=== PATIENT | male | born 1955 | race Caucasian/White ===

== ENCOUNTER 2021-06-05 06:00 | Outpatient (RCR) | payer OTHER, SELFPAY | END 2021-06-22 23:59 | disposition home or self-care (01) | LOC: SPT 06:00 | PROVIDERS: PCP Family Medicine; Referring Provider Family Medicine; Visit Provider Family Medicine | DX: M25.511 Pain in right shoulder (principal); G89.29 Other chronic pain | CPT/HCPCS: 97110; 97150; 97162 ==

== ENCOUNTER → 2021-07-28 08:47 | Outpatient (BNVA) | payer OTHER, SELFPAY | PROVIDERS: PCP Family Medicine; Visit Provider Family Medicine | DX: R35.1 Nocturia (principal); Z13.6 Encounter for screening for cardiovascular disorders | CPT/HCPCS: 80053; 80061; 84153; 85025 ==

== ENCOUNTER 2022-02-13 15:23 | Outpatient (CLI) | payer OTHER, SELFPAY ==
--- NOTE | 2022-02-13 15:55 | XR_ITS ---
WS: [id number] Exam: XR knee RT 3V* [id number] Date/Time of Exam: 02/13/2022 4:14 PM Reason For Exam: chronic right knee pain Comparison 07/09/2016. No acute fracture or dislocation. Moderate degenerative change of both the medial and lateral joint c ompartments. Degenerative change at the patellofemoral joint. No joint effusion seen. XR/XR knee RT 3V* [id number] IMPRESSION: 1. Moderate tricompartmental DJD. No acute fracture or joint effusion.
== END 2022-02-13 15:24 | disposition home or self-care (01) ==
PROVIDERS: PCP Family Medicine; Visit Provider Family Medicine
DX: M17.11 Unilateral primary osteoarthritis, right knee (principal); M25.561 Pain in right knee; G89.29 Other chronic pain
CPT/HCPCS: 73562

== ENCOUNTER → 2022-04-12 13:51 | Outpatient (BNVA) | payer OTHER, SELFPAY | PROVIDERS: PCP Family Medicine; Referring Provider Family Medicine; Visit Provider Specialist | DX: M17.11 Unilateral primary osteoarthritis, right knee (principal) | CPT/HCPCS: 73560; 73565 ==

== ENCOUNTER → 2023-02-04 13:50 | Outpatient (BNVA) | payer MEDICARE, OTHER, SELFPAY | PROVIDERS: PCP Family Medicine; Visit Provider Specialist | DX: M17.11 Unilateral primary osteoarthritis, right knee (principal); S83.207A Unspecified tear of unspecified meniscus, current injury, left knee, initial encounter; X58.XXXA Exposure to other specified factors, initial encounter | CPT/HCPCS: 20610; 73560; 73565; 99214; J7326 ==

== ENCOUNTER 2023-02-19 06:56 | Outpatient (CLI) | payer MEDICARE, OTHER, SELFPAY ==
--- NOTE | 2023-02-19 07:15 | MR_ITS ---
WS: [id number] MRI LEFT KNEE NONCONTRAST TECHNIQUE: Axial PD, coronal PD fat sat, coronal PD, sagittal PD, and sagittal PD fat-sat images obta ined. CLINICAL INFORMATION: possible meniscus tear COMPARISON: None. FINDINGS: Advanced joint compartment arthritis. Hypertrophic changes along the joint line. Hypertrophic patella . Small suprapatellar effusion. Distal quadriceps and patella tendons are intact. ACL and PCL appear intact. Blunting of the posterior horn medial meniscus with small tear at the meniscal root. Blunting of the posterior horn. Lateral meniscus is intact. Moderate to advanced chondromalacia patella. Medial and lateral patellar retinacula appear intact. Ti ny popliteal cyst. Small amount of fluid and edema deep to the MCL which appears intact. Lateral augusta ateral ligament appears intact. Mild peripheral extrusion of the medial meniscus. Full-thickness cart ilage defects involving the medial joint compartment. MR/MR knee LT wo con* [id number] IMPRESSION: 1. Advanced tricompartmental arthritis with hypertrophic changes along the elsy nt line. Small suprapatellar effusion. 2. Small tear involving the posterior horn medial meniscus extending to the me niscal root. 3. ACL and PCL appear intact. 4. Moderate to advanced chondromalacia patella. 5. Full-thickness cartilage defects involving the medial greater than lateral joint compartment. 6. Grade one injury MCL which appears intact. Outbridge grading: grade III: partial-thickness cartilage loss with focal ulcer ation
== END 2023-02-19 06:57 ==
PROVIDERS: PCP Family Medicine; Visit Provider Specialist
DX: S83.207A Unspecified tear of unspecified meniscus, current injury, left knee, initial encounter (principal); M17.11 Unilateral primary osteoarthritis, right knee; X58.XXXA Exposure to other specified factors, initial encounter
CPT/HCPCS: 20610; 73721; J7326

== ENCOUNTER → 2023-02-20 09:31 | Outpatient (BNVA) | payer MEDICARE, OTHER, SELFPAY | PROVIDERS: PCP Family Medicine; Visit Provider Specialist | DX: M17.12 Unilateral primary osteoarthritis, left knee (principal) | CPT/HCPCS: 20610; 99214; J7326 ==

== ENCOUNTER → 2023-07-26 08:27 | Outpatient (BNVA) | payer MEDICARE, OTHER, SELFPAY | PROVIDERS: PCP Family Medicine; Visit Provider Nurse Practitioner | DX: R52 Pain, unspecified (principal) | CPT/HCPCS: 87426 ==

== ENCOUNTER → 2023-09-30 14:25 | Outpatient (BNVA) | payer MEDICARE, OTHER, SELFPAY | PROVIDERS: PCP Family Medicine; Visit Provider Nurse Practitioner | DX: M17.12 Unilateral primary osteoarthritis, left knee (principal) | CPT/HCPCS: 20610; J7325 ==

== ENCOUNTER → 2024-02-10 08:58 | Outpatient (BNVA) | payer MEDICARE, OTHER, SELFPAY | PROVIDERS: PCP Family Medicine; Visit Provider Specialist | DX: M17.12 Unilateral primary osteoarthritis, left knee (principal); M17.11 Unilateral primary osteoarthritis, right knee | CPT/HCPCS: 36415; 73560; 73565; 80053; 81001; 85025; 99214 ==

== ENCOUNTER → 2024-02-16 10:29 | Outpatient (BNVA) | payer MEDICARE, OTHER, SELFPAY | PROVIDERS: PCP Family Medicine | DX: N39.0 Urinary tract infection, site not specified (principal); R39.9 Unspecified symptoms and signs involving the genitourinary system | CPT/HCPCS: 81000; 87086 ==

== ENCOUNTER 2024-02-20 16:21 | Outpatient (CLI) | payer MEDICARE, OTHER, SELFPAY ==
--- NOTE | 2024-02-20 16:30 | CT_ITS ---
WS: [id number] CT RIGHT KNEE, NONCONTRAST [facility] TECHNIQUE: Noncontrast CT of the RIGHT knee to include the RIGHT hip and ankle. CLINICAL INFORMATION: Per [facility] PROTOCOL/Surgery Planning COMPARISON: None. DLP: 941.[address] scans at [facility] use at least one of these dose optimization techniques: automated e xposure control; mA and/or kV adjustment per patient size (includes targeted exams where dose is matc hed to clinical indication); or iterative reconstruction. FINDINGS: Mild degenerative arthritis sacroiliac joints. Mild degenerative arthritis both hips. Normal pubic ra mi. Prostate enlargement measuring 4.3 cm. Recommend correlation PSA. Sigmoid diverticulosis. Advanced tricompartmental arthritis RIGHT knee worse in the medial joint compartment. Hypertrophic pa tella. Hypertrophic changes along the joint line. Tiny suprapatellar effusion. CT/CT knee RT [facility] [id number] IMPRESSION: Images obtained for preoperative purposes.
== END 2024-02-20 16:22 | disposition home or self-care (01) ==
LOC: RAD 16:21
PROVIDERS: PCP Family Medicine; Visit Provider Specialist
DX: M17.11 Unilateral primary osteoarthritis, right knee (principal); N40.0 Benign prostatic hyperplasia without lower urinary tract symptoms; M89.40 Other hypertrophic osteoarthropathy, unspecified site; Z01.818 Encounter for other preprocedural examination
CPT/HCPCS: 73700

== ENCOUNTER 2024-03-05 12:20 | Observation (INO) | payer MEDICARE, OTHER, SELFPAY ==
[2024-03-05] VITALS (17 sets, daily range): BP systolic 88–142; BP diastolic 59–88; PULSE 69–84; RESP 12–18; TEMP 36.1–36.4; O2SAT 92–98; BMI 26.6
--- NOTE | 2024-03-05 07:04 | W.PM.OPSUD ---
Surgery/Procedure H&P Update DATE OF PROCEDURE: March 05, 2024 DATE H&P PERFORMED: 02/10/24 H&P UPDATE INFORMATION: I have reviewed H&P completed within last 30 days, I have examined patient prior to procedure, No changes to prior documentation and H&P is in [facility] EMR on date indicated PLANNED PROCEDURE: Operation Date: 03/05/24 08:10 Proposed Procedures p Bryon Robot Total Knee Arthroplasty(Right) - Emani Cooney MD Related Problem List Diagnoses (1) Osteoarthritis of right knee: Qualifiers: Osteoarthritis type: primary Qualified Code(s): M17.11 - Unilateral primary osteoarthritis, right knee
[2024-03-05] MEDS: CELEcoxib 200 mg Capsule 400 MG PO (07:17)
[2024-03-05] MEDS: sodium chloride 0.9% 1,000 ML 30 ML IV (07:17)
[2024-03-05] MEDS: acetaminophen 1,000 MG/100 ML PIGGYBACK 400 MG IV ×3 (07:17→19:59)
[2024-03-05] MEDS: gabapentin 300 mg Capsule PO (07:17)
[2024-03-05 07:38] LABS: Basophils % 0.6 %; Eosinophils # 0.1 10^3/uL (0.0-0.8); Eosinophils % 1.1 %; Hematocrit 45.7 % (37-53); Lymphocytes # 2.3 10^3/uL (0.8-4.8); Lymphocytes % 34.5 %; Mean Corpuscular HGB Conc 33.5 g/dL (30-55); Mean Corpuscular Hemoglobin 29.8 pg (27-33); Mean Corpuscular Volume 88.9 fl (82-101); Mean Platelet Volume 8.7 fL (7.4-10.4); Monocytes # 0.5 10^3/uL (0.2-0.9); Monocytes % 7.2 %; Neutrophils # 3.76 10^3/uL (1.8-7.7); Neutrophils % 56.4 %; Nucleated Red Blood Cells % 0 %; Platelet Count 281 10^3/cmm (157-399); Red Blood Count 5.14 10^6/uL (3.85-5.65); White Blood Count 6.66 10^3/uL (3.29-11.43)
[2024-03-05] MEDS: ceFAZolin 2,000 MG in sodium chloride 0.9% (plus) 50 ML 100 MG IV ×3 (07:56→23:16)
[2024-03-05 07:58] LABS: Alanine Aminotransferase 16 U/L (0-41); Albumin Level 4.3 g/dL (3.5-5.2); Alkaline Phosphatase 82 U/L (40-130); Anion Gap 15.9 (5-19); Aspartate Amino Transferase 14 U/L (0-40); Blood Urea Nitrogen 14 mg/dL (8-23); Calcium 8.7 mg/dL (8.5-10.5); Carbon Dioxide 25 mmol/L (22-29); Chloride 103 mmol/L (98-107); Creatinine Clr Calc Pharmacy 90.5786; Globulin 3.1 g/dL (1.3-4.6); Glomerular Filtration Rate 96.7 mL/min (90-130); Glucose 94 mg/dL (65-115); Osmolality Calculated 290 mOsm/kg (285-295); Potassium 3.9 mmol/L (3.5-5.1); Sodium 140 mmol/L (136-145); Total Bilirubin 0.4 mg/dL (0.15-1.2); Total Protein 7.4 g/dL (6.6-8.7)
--- NOTE | 2024-03-05 08:01 | P.ANESASSM_ITS ---
Pre-Anesthetic Assessment Height/Weight: Height 1.7 m Weight 77.111 kg Temp Pulse Resp BP Pulse Ox O2 Del Method 97.4 F L 74 18 142/88 98 Room Air 03/05/24 06:47 03/05/24 06:47 03/05/24 06:47 03/05/24 06:47 03/05/24 06:47 03/05/24 06:50 Operation Date: 03/05/24 08:10 Proposed Procedures p Bryon Robot Total Knee Arthroplasty(Right) - Emani Cooney MD Familial anesthetic complications: none Was Beta Rocky taken within 24 hours: N/A Was Clonidine taken within 24 hours: N/A Last intake: Intake Last Liquid Date 03/04/24 Last Liquid Time 20:00 Last Solid Date 03/04/24 Last Solid Time 20:00 Social No alcohol and No tobacco Exam alert, oriented x 3, clear to auscultation bilaterally and regular rate & rhythm Airway Submandibular: within normal limits Cervical ROM: within normal limits Mallampati: Class II Dentition: full CV/HEM Hypertension Musc/skel Lower Back Pain and Osteoarthritis/DJD Anesthetic Plan ASA status: 2 Anesthesia: Regional (specify below) (SAB with right adductor blk) Medications/Allergies Home Medications Medication Instructions Recorded Confirmed Last Taken Type aspirin 81 mg tablet,delayed 81 mg PO QDAY 10/16/19 03/04/24 03/01/24 History release vit 1 tab PO DAILY 03/13/21 03/04/24 Unknown History [id number] 500 mg-50 mg-25 mg-40 mg tablet (Bioflex) Allergies Allergy/AdvReac Type Severity Reaction Status Date / Time No Known Allergies Allergy Verified 02/16/24 10:22 Current Medications Generic Name Dose Route Start Last Admin Trade Name Freq PRN Reason Stop Dose Admin Sodium Chloride 1,000 mls @ 30 mls/hr 03/05/24 06:45 03/05/24 07:17 Sodium Chloride 0.9% IV 03/06/24 06:44 30 mls/hr .Q24H EL Administration PFSH Anesthesia Medical History Osteoarthritis involving multiple joints on both sides of body Left-sided low back pain with bilateral sciatica Surgical History History of tonsillectomy and adenoidectomy H/O knee surgery Meniscal repair Family History Other Cancer Hypertension Social History Smoking and tobacco/nicotine status: never used tobacco/nicotine Alcohol intake: never Substance/Drug Use: never Data Anesthesia 03/05/24 07:15 03/05/24 07:15 Short CBC 03/05/24 Range/Units 07:15 WBC 6.66 (3.29-11.43) 10^3/uL Hgb 15.30 (11.27-16.99) g/dL Hct 45.7 (37-53) % MCV 88.9 (82-101) fl Plt Count 281 (157-399) 10^3/cmm Neut % (Auto) 56.4 % Neut # (Auto) 3.76 (1.8-7.7) 10^3/uL BMP 03/05/24 07:15 Sodium 140 Potassium 3.9 Chloride 103 Carbon Dioxide 25 BUN 14 Creatinine 0.8 Glucose 94 Calcium 8.7 Liver Function 03/05/24 Range/Units 07:15 Total Bilirubin 0.4 (0.15-1.2) mg/dL AST 14 (0-40) U/L ALT 16 (0-41) U/L Alkaline Phosphatase 82 (40-130) U/L Albumin 4.3 (3.5-5.2) g/dL Cardiac Studies: 2 No Data to Display
[2024-03-05] MEDS: tranexamic acid 1,000 mg/10mL SDV 1000 MG IV (08:20)
--- NOTE | 2024-03-05 08:29 | ANES.PROC ---
Anesthesia Procedures Procedure/Date: 03/05/24 Nerve Block ^: Nerve Block 1: Main Anesthesia: spinal anesthesia block Time Out Performed: Yes Consent: requested by attending/covering physician, from patient, risks and benefits reviewed and patient agrees to proceed Nerve block location: adductor canal (right) Anesthesia monitors applied: pulse oximetry, EKG, BP cuff and oxygen Nerve block position: supine Anesthetic Used: ropivicaine 0.5% Amount of anesthesia used (mL): 20 Ultrasound used to: recognize landmarks Nerve Stimulator Used?: No Interscalene/Femoral BLK: 4 stimuplex 21 g needle used for position and inplane approach Injection: neg aspiration of heme Patient Tolerated Procedure: well Complications: none
[2024-03-05] MEDS: BUPivacaine 0.5% INJ 10 mL 20 ML INJECTION (08:55)
[2024-03-05] MEDS: BUPivacaine liposome 13.3 mg/mL SDV 10 mL 266 MG XX (08:55)
[2024-03-05] MEDS: ceFAZolin 1,000 mg SDV 2000 MG IRRIGATION (08:57)
[2024-03-05] MEDS: vancomycin 1,000 MG SDV 1000 MG INTRA-ARTI (08:59)
--- NOTE | 2024-03-05 11:17 | XRR_ITS ---
PROCEDURE INFORMATION: Exam: XR Right Knee Exam date and time: 03/05/2024 11:24 AM Age: 68 years old Clinical indication: Device placement; Joint replacement hardware; Prior surgery; Surgery date: Post-operative (0-2 days); Surgery type: Total knee arthroplasty; Additional info: Status post total knee arthroplasty TECHNIQUE: Imaging protocol: Radiologic exam of the right knee. Views: 3 views. COMPARISON: CT knee RT [facility] [id number] 02/20/2024 4:29 PM FINDINGS: Bones/joints: Total-knee replacement. Anatomic alignment. Intra-articular gas. No fracture or dislocation.. Soft tissues: Normal. XR/XR knee RT 3V* [id number] IMPRESSION: Normal following replacement.
--- NOTE | 2024-03-05 11:36 | PM.OP ---
Operative Report Date of procedure: March 05, 2024 Pre-op diagnosis: Severe degenerative osteoarthritis right knee with varus deformity Post-op diagnosis: Severe degenerative osteoarthritis right knee with varus deformity Post-op findings: Severe degenerative osteoarthritis of the right knee Procedure done: Right total knee arthroplasty with Bryon guidance Implants: The [place] total knee system with a size 5 triathlon beaded cruciate retaining femur right, a triathlon titanium tibial component size 5 beaded, a triathlon X3 tibial bearing CS insert size 5 X 12 mm and a beaded triathlon titanium asymmetric patella size 35 x 10 mm Specimens removed/disposition: Bone, disposed of Pathology: None Surgeon: Emani Cooney MD Web User Experience Strategist[facility] Anesthesia: Spinal (With MAC and supplemental adductor block, ASA 2) Estimated blood loss (mL): 200 Tourniquet time (min): 0 (Not utilized) IV fluids (mL): 2,000 Urine output (mL): 150 Complications: None Findings: Severe degenerative osteoarthritis with varus deformity and osteophytes Condition: stable Disposition: PACU (Then to floor for postoperative rehabilitation and pain management) Brief History: This 68-year-old gentleman presents today for same-day surgery in the form of right total knee arthroplasty with Bryon guidance. Patient was unresponsive to conservative measures such as injections, and these are no longer effective. Risks and complications were discussed with the patient regarding total knee arthroplasty. Consents were signed and questions were answered. Procedure: The patient was brought to the operating theater, and after undergoing spinal anesthetic, with MAC and with supplemental adductor canal block, ASA 2, the right lower extremity was prepped with Dura-Prep and draped in usual fashion following placement of a tourniquet high on the leg. The leg was then draped free.? Tourniquet was not elevated during the case.? A surgical pause was performed, and at the time of the surgical pause, we confirmed the site and side of surgery. Additionally, we confirmed the appropriate and timely administration of preoperative antibiotics, Ancef 2 g.? The availability of equipment was confirmed, and the patient's identity was verbalized as well. Following the surgical pause, an incision was made centering over the patella continuing proximally and distally as necessary to allow access to the knee joint. Dissection continued through skin and soft tissues using a scalpel. Hemostasis was obtained using electrocautery. The skin incision was followed by a median parapatellar arthrotomy. The leg was extended and the patella was able to be displaced laterally.? Appropriate arrays and markers were placed in appropriate position for use of the Bryon.? Preoperative planning had been accomplished and was discussed in detail with the [facility] parts counter representative.? Intraoperative mapping of the femur and tibia was accomplished after the arrays were placed.? Internal markers were also placed.? Once we had accomplished the Bryon mapping, we began the appropriate resections for placement of the prosthesis.? The plan was for a cruciate retaining right total knee arthroplasty. Once appropriate mapping had been accomplished retraction was established using manual retraction by surgical technicians and also the Bryon leg positioner and retractors.? The knee was evaluated.? There was significant osteoarthritic change as well as very minimal flexion contracture as well as varus deformity.? Appropriate bone resection was accomplished using the Bryon.? The femur was sized to a size 5.? Following femoral cuts, attention was directed to the tibia.? Osteophytes were removed prior to this portion of the procedure.? We had performed a minimal medial release at the beginning of the procedure to allow for placement of the array.? Proximal tibia was evaluated, and it was felt that appropriate size for the tibia was a size 5.? Tray was noted to fit nicely with good coverage.? Rim fit was accomplished with the size 5. A trial reduction was accomplished after osteophytes have been removed as well as the medial and lateral menisci.? We had removed the anterior cruciate ligament at the beginning of the case and preserved the posterior cruciate ligament.? Trial reduction was accomplished with a size 5 femoral cruciate retaining component, a size 5 tibial tray and a size 3 CS tibial bearing insert which was 9 mm initially which was increased to 11 mm.? Secondary to the balancing of the knee, we elected to place a 12 mm insert for the actual component. Alignment was felt to be appropriate as well.? Trial components were removed after the femur had been drilled.? Prior to removal of the tibial tray which had been pinned in position with appropriate rotation as determined by the Bryon plan, we broached the tibia.? Subsequently, the 4 drill holes were made for the prosthetic component.? All trial components were removed, and the wound was irrigated.? Plans were made for insertion of the prosthetic components.? Prior to this, the patella was manually prepared.? After resection of the articular surface with the jogging system, it was measured and measured a 35 mm patella.? We resected approximately 10 mm of patella.? Patellar height was restored with the patellar component. Once again, the wound was irrigated.? The Tritanium tibia was impacted into position.? The beaded femur was then impacted into position in a cementless fashion. The CS tibial insert was placed prior to placement of the femoral component. The patella was pressed into position with a patellar clamp.? Exparel was injected about the components deep and superficially.? The knee was then copiously irrigated with betadine and saline and suctioned dry. Attention was then directed to closure. Closure was accomplished with 0 Vicryl in the fascial tissues.? The suture line of 0 Vicryl was supplemented with strata fix, #1, with a running stitch from proximal to distal and a second running stitch from distal to proximal.? This was followed by Surgiflo and vancomycin powder.? Following this, a 2-0 STRATAFIX was used in the subcutaneous tissues, and the skin was closed with 3-0 Strata fix.? Care was taken to assure an excellent subcutaneous as well as skin closure.? A sterile dressing was then placed consisting of Dermabond Prineo, OpSite, ABD, sterile soft roll, and an Eb wrap including over the foot. The patient was returned the Recovery Room in a satisfactory condition. X-rays were obtained and reviewed there.? The patient will be discharged to the floor for postoperative rehabilitation and pain management. Related Problem List Diagnoses (1) Osteoarthritis of right knee:
--- NOTE | 2024-03-05 12:36 | ANE.PACU2 ---
Inpatient post-anesthesia follow up: Airway intact: Yes Vital signs: Temperature 97.5 F Pulse Rate 72 Respiratory Rate 16 Blood Pressure 111/68 Pulse Oximetry 95 Oxygen Delivery Me thod Room Air Oxygen Flow Rate Fraction of Inspir ed Oxygen Hydration adequate: Yes Nausea and vomiting: No Pain level: 1 Mental status: Baseline
[2024-03-05] MEDS: CELEcoxib 200 mg Capsule PO ×2 (12:46→23:16)
[2024-03-05] MEDS: chlorhexidine gluconate 0.12% Btl 473 mL 30 ML MUCOUS MEM ×3 (12:49→19:59)
[2024-03-05] MEDS: ondansetron 2 mg/ML SDV 2 mL 4 MG IVP ×2 (12:53→23:48)
[2024-03-05] MEDS: oxyCODONE 5 mg IR Tab/Cap PO ×3 (14:16→22:39)
[2024-03-05] MEDS: mupirocin oint 22 gm 1 APPLIC NASAL (17:23)
[2024-03-05] MEDS: iron polysaccharide complex 150 mg Capsule PO (17:25)
[2024-03-05] MEDS: calcium carbonate 500 mg Chew Tablet 1000 MG PO (17:25)
[2024-03-05] MEDS: sennosides-docusate Tablet 2 TAB PO (17:25)
[2024-03-06] VITALS (8 sets, daily range): BP systolic 103–109; BP diastolic 63–69; PULSE 74–94; RESP 16–18; TEMP 36.4–37.2; O2SAT 90–95
[2024-03-06] MEDS: metoclopramide 5 mg/mL SDV 2 mL 10 MG IV (02:31)
[2024-03-06] MEDS: acetaminophen 1,000 MG/100 ML PIGGYBACK 400 MG IV (03:05)
[2024-03-06 05:25] LABS: Basophils % 0.2 %; Hematocrit 33.3 % (37-53); Lymphocytes # 0.9 10^3/uL (0.8-4.8); Lymphocytes % 7.9 %; Mean Corpuscular HGB Conc 32.7 g/dL (30-55); Mean Corpuscular Hemoglobin 29.6 pg (27-33); Mean Corpuscular Volume 90.5 fl (82-101); Mean Platelet Volume 8.9 fL (7.4-10.4); Monocytes # 0.8 10^3/uL (0.2-0.9); Monocytes % 6.8 %; Neutrophils % 84.7 %; Nucleated Red Blood Cells % 0 %; Platelet Count 252 10^3/cmm (157-399); Red Blood Count 3.68 10^6/uL (3.85-5.65); Red Cell Distribution Width 12.3 % (12.1-15.1); White Blood Count 11.45 10^3/uL (3.29-11.43)
[2024-03-06 05:48] LABS: Anion Gap 14.2 (5-19); Blood Urea Nitrogen 12 mg/dL (8-23); Carbon Dioxide 25 mmol/L (22-29); Chloride 103 mmol/L (98-107); Creatinine Clr Calc Pharmacy 90.8813; Glomerular Filtration Rate 96.7 mL/min (90-130); Glucose 137 mg/dL (65-115); Osmolality Calculated 288 mOsm/kg (285-295); Potassium 4.2 mmol/L (3.5-5.1); Sodium 138 mmol/L (136-145)
[2024-03-06] MEDS: oxyCODONE 5 mg IR Tab/Cap PO ×2 (07:09→11:06)
[2024-03-06] MEDS: ceFAZolin 2,000 MG in sodium chloride 0.9% (plus) 50 ML 100 MG IV (07:10)
[2024-03-06] MEDS: ondansetron 2 mg/ML SDV 2 mL 4 MG IVP (07:11)
[2024-03-06] MEDS: scopolamine 1.5 Patch 1 PATCH TRANSDERMA (08:44)
[2024-03-06] MEDS: metoclopramide 10 mg Tablet PO (08:45)
--- NOTE | 2024-03-06 09:04 | PC.CHAP ---
Pastoral Care Encounter/Spiritual Assessment Type of Contact [] Declined activity manager visit [] Patient/Family/Request visit [] Outpatient visit [] Follow-up visit [] Physician referral [] Code/Alert [] Routine visit [] Staff referral [] Actively dying [] Patient sleeping [] Family support [] [] Out of room [] Palliative care [] [x] Receiving care in room [] Pre-surgical visit [] Trauma [] Long length of stay [] ICU visit [] Other: Relational/Emotional Strength [] Patient feels connected with others/family/visitors/staff [] Distress [] Loneliness/isolation [] Abandonment Spirituality of Patient [] Person of Ember [] Attends Latter-Day of their Ember [] Believes in Prayer [] Reads Bible or Roman Catholic materials [] There are Spiritual issues to be addressed Hand Scudder Interventions [] Prayer [] Active listening [] Non-anxious presence [] Spiritual/emotional support [] Crisis/trauma care [] Spiritual counseling [] Bereavement support [] Provided bereavement packet [] Provided Bible/devotional materials [] Provided toy/stuffed animal, coloring book to patient or family member [] Provided Communion [] Anointing/[place] [] Salvation [] Completed spiritual assessment [] Other: Impact on Illness or Injury [] Angry [] Fearful [] Anxious [] Often cries [] Exhaustion [] Unable to work [] Unable to attend moravian [] Unable to walk/stand [] Unable to read [] Unable to drive [] Unable to eat/drink [] Unable to sleep [] Unable to be with family [] Patient intubated [] Other: Summary Time spent with patient
[2024-03-06] MEDS: calcium carbonate 500 mg Chew Tablet 1000 MG PO (09:52)
[2024-03-06] MEDS: sennosides-docusate Tablet 2 TAB PO (09:52)
[2024-03-06] MEDS: cholecalciferol (vitamin D3) 1,000 unit Tablet 1000 UNIT PO (09:52)
[2024-03-06] MEDS: multivitamin therapeutic Tablet 1 TAB PO (09:52)
[2024-03-06] MEDS: aspirin 325 mg EC Tablet PO (09:52)
[2024-03-06] MEDS: mupirocin oint 22 gm 1 APPLIC NASAL (09:57)
[2024-03-06] MEDS: chlorhexidine gluconate 0.12% Btl 473 mL 30 ML MUCOUS MEM ×2 (09:57→13:06)
[2024-03-06] MEDS: acetaminophen 500 mg Tablet 1000 MG PO (11:05)
[2024-03-06] MEDS: CELEcoxib 200 mg Capsule PO (11:05)
[2024-03-06] MEDS: iron polysaccharide complex 150 mg Capsule PO (13:06)
--- NOTE | 2024-03-06 13:08 | PC.SOCIAL ---
IMM Updated Updated pt on IMM. No questions voiced. Provided pt a copy. Initialed, dated, & timed a copy & placed in chart.
--- NOTE | 2024-03-06 14:23 | P.DS_ITS ---
Discharge Providers Date of Admission: 03/05/24 12:20 Date of Discharge: March 06, 2024 Attending Provider at Admission: Emani Cooney MD Attending Provider at Discharge: Emani Cooney MD Primary Care Provider: Amy Pugh DO Diagnoses at Discharge Discharge Diagnosis (1) Status post total right knee replacement not using cement: Status: Acute Permanent problem details: Date of procedure: March 05, 2024 Diagnosis: Severe degenerative osteoarthritis right knee with varus deformity Procedure done: Right total knee arthroplasty with Bryon guidance Implants: The [place] total knee system with a size 5 triathlon beaded cruciate retaining femur right, a triathlon titanium tibial component size 5 beaded, a triathlon X3 tibial bearing CS insert size 5 X 12 mm and a beaded triathlon titanium asymmetric patella size 35 x 10 mm (2) Osteoarthritis of right knee: Status: Acute Qualifiers: Osteoarthritis type: primary Qualified Code(s): M17.11 - Unilateral primary osteoarthritis, right knee Reason for Visit Reason for Visit: M17.11 Brief History: This 68-year-old gentleman presents today for same-day surgery in the form of right total knee arthroplasty with Bryon guidance. Patient was unresponsive to conservative measures such as injections, and these are no longer effective. Risks and complications were discussed with the patient regarding total knee arthroplasty. Consents were signed and questions were answered. Hospital Course Hospital Course This 68-year-old gentleman was admitted under observation status to the floor following total knee arthroplasty with Bryon guidance, and cemented. He did well except for nausea, and at the time of discharge, his nausea had resolved. He was switched from oxycodone at the time of discharge to tramadol in hopes of limiting his nausea. He has had a history of nausea with hydrocodone. He is advised of appropriate care of his dressing. There is no evidence of DVT. He will be discharged home to follow-up with me in the office as scheduled. Physical Exam Const: COMMON NORMALS: no acute distress, average body habitus, patient oriented x3 and alert GENERAL APPEARANCE: cooperative and comfortable ORIENTATION/CONSCIOUSNESS: Yes awake HENMT: COMMON NORMALS: normocephalic and atraumatic HEAD & SCALP: normocephalic and atraumatic Eye: GENERAL EYE: appearance normal, both eyes and all related structures Chest: COMMONS NORMALS: normal inspection of the chest Resp: COMMON NORMALS: normal respiratory effort EFFORT & INSPECTION: Yes able to speak in complete sentences and Yes symmetric chest movement Extremity: RIGHT LOWER EXTREMITY: Yes knee joint (Dressing is removed. There is minimal swelling or ecchymosis.) Right knee: Yes inspection (Calf is soft and nontender.), Yes ROM (Almost able to straight leg raise.) and Yes neurovascular exam (No evidence of DVT.) Neuro: COMMON NORMALS: patient oriented x3 SENSORIUM/ORIENTATION: Yes alert Psych: COMMON NORMALS: mental status grossly normal APPEARANCE: Yes grossly normal ATTITUDE: Yes calm and Yes engaged ATTENTION/CONCENTRATION: Yes attention grossly intact Skin: COMMON NORMALS: no rashes or lesions noted GENERAL SKIN EXAM: no rashes or lesions noted Urinary Catheter Management: [place]: Cath Placed During This Visit: yes, but has since been removed by the nurse Reason for Continuing Indwelling Catheter: Decision to DC Catheter Urinary Catheter Date of Insertion: 03/05/24 Urinary Catheter Time of Insertion: 08:15 Date Urinary Catheter Removed: 03/06/24 Time Urinary Catheter Discontinued: 05:50 Discharge Data Studies Completed and Pending Completed Studies During Hospitalization Category Date Time Status XR knee RT 3V* [id number] Urgent Exams 03/05/24 11:17 Completed Radiology Impressions Knee X-Ray 03/05/24 11:17 IMPRESSION: Normal following replacement. Laboratory Results WBC 11.45 10^3/uL (3.29-11.43) H 03/06/24 04:31 RBC 3.68 10^6/uL (3.85-5.65) L 03/06/24 04:31 Hgb 10.90 g/dL (11.27-16.99) L 03/06/24 04:31 Hct 33.3 % (37-53) L 03/06/24 04:31 MCV 90.5 fl (82-101) 03/06/24 04:31 MCH 29.6 pg (27-33) 03/06/24 04:31 MCHC 32.7 g/dL (30-55) 03/06/24 04:31 RDW 12.3 % (12.1-15.1) 03/06/24 04:31 Plt Count 252 10^3/cmm (157-399) 03/06/24 04:31 MPV 8.9 fL (7.4-10.4) 03/06/24 04:31 Neut % (Auto) 84.7 % 03/06/24 04:31 Lymph % (Auto) 7.9 % 03/06/24 04:31 [place] % (Auto) 6.8 % 03/06/24 04:31 Eos % (Auto) 0.0 % 03/06/24 04:31 Baso % (Auto) 0.2 % 03/06/24 04:31 Neut # (Auto) 9.70 10^3/uL (1.8-7.7) H 03/06/24 04:31 Lymph # (Auto) 0.9 10^3/uL (0.8-4.8) 03/06/24 04:31 [place] # (Auto) 0.8 10^3/uL (0.2-0.9) 03/06/24 04:31 Eos # (Auto) 0.0 10^3/uL (0.0-0.8) 03/06/24 04:31 Baso # (Auto) 0.0 10^3/uL (0.0-0.1) 03/06/24 04:31 Nucleated RBC % (auto) 0 % 03/06/24 04:31 Nucleated RBCs # 0.0 /100WBC 03/06/24 04:31 Sodium 138 mmol/L (136-145) 03/06/24 04:31 Potassium 4.2 mmol/L (3.5-5.1) 03/06/24 04:31 Chloride 103 mmol/L (98-107) 03/06/24 04:31 Carbon Dioxide 25 mmol/L (22-29) 03/06/24 04:31 Anion Gap 14.2 (5-19) 03/06/24 04:31 BUN 12 mg/dL (8-23) 03/06/24 04:31 Creatinine 0.8 mg/dL (0.7-1.2) 03/06/24 04:31 GFR Calculation 96.7 mL/min (90-130) 03/06/24 04:31 Glucose 137 mg/dL (65-115) H 03/06/24 04:31 Calculated Osmolality 288 mOsm/kg (285-295) 03/06/24 04:31 Calcium 8.0 mg/dL (8.5-10.5) L 03/06/24 04:31 Total Bilirubin 0.4 mg/dL (0.15-1.2) 03/05/24 07:15 AST 14 U/L (0-40) 03/05/24 07:15 ALT 16 U/L (0-41) 03/05/24 07:15 Alkaline Phosphatase 82 U/L (40-130) 03/05/24 07:15 Total Protein 7.4 g/dL (6.6-8.7) 03/05/24 07:15 Albumin 4.3 g/dL (3.5-5.2) 03/05/24 07:15 Globulin 3.1 g/dL (1.3-4.6) 03/05/24 07:15 Vitals Last Vital Signs Temp 98.9 F 03/06/24 11:38 Pulse 79 03/06/24 11:38 Resp 18 03/06/24 11:38 BP 109/68 03/06/24 11:38 Pulse Ox 94 03/06/24 11:38 O2 Del Method Room Air 03/06/24 11:38 Discharge Plan Discharge Patient Disposition: Home Health Service Condition: Stable Prescriptions: New celecoxib 200 mg Capsule 200 mg PO 1XD 30 Days Qty: 30 0RF tramadol 50 mg tablet 50 - 100 mg PO Q8H PRN (Reason: pain) 7 Days Qty: 40 0RF acetaminophen 500 mg Tablet 1,000 mg PO Q8H 15 Days Qty: 90 0RF aspirin 325 mg Tablet,Delayed Release (Dr/Ec) 325 mg PO DAILY 30 Days Qty: 0 0RF Continued Bioflex 711-24-62-40 mg tablet 1 tab PO DAILY Held aspirin 81 mg tablet,delayed release (DR/EC) 81 mg PO QDAY Hold Instructions: Resume on 04/03/24. Take 30 days of 325 mg aspirin then resume 81 mg aspirin Discharge Orders: Discharge Order (Routine); Ordered 03/06/24 Ordered By: Emani Cooney Referrals: [facility] [Other] Emani Cooney MD [Physician] - 03/25/24 2:15 pm Discharge Diet: Advance as tolerated and Usual diet Discharge Activity: Increase activity as tolerated, Limit activity as instructed, Use walker/crutches as instructed and As per PT/OT instructions Patient Instructions: Opioid Safety Activity Restrictions/Additional Instructions: Ice to the knee. Work with physical therapy for gait training, ambulation, and strengthening. Maintain large outer dressing until it comes off on its own. If it begins to leak or the wound feels wet, please remove it. There is a Dermabond underneath that can stay in place until it comes off. You may shower, but do not submerge your knee in water. Discharge Attestations Time Spent in Discharge Care*: greater than 30 min Specific Discharge Activities: educating patient, documenting/other paperwork and evaluating patient/reviewing data Quality Metrics Clinical Quality Measures [ No reported AMI, CVA or VTE this stay] Coding Level of Care Code Acute Code for Chg Fwd Diagnoses Status post total right knee replacement not using cement Z96.651 Primary osteoarthritis of right knee M17.11 Osteoarthritis type: primary
== END 2024-03-06 15:14 | disposition home health service (06) ==
LOC: MEDSURG 12:23
PROVIDERS: Admitting Provider Specialist; PCP Family Medicine; Visit Provider Specialist
PROC: 8E0Y0CZ Robotic Assisted Procedure of Lower Extremity, Open Approach (ICD-10-PCS; CPT 27447; principal; 2024-03-05 08:10)
DX: M17.11 Unilateral primary osteoarthritis, right knee (principal); I10 Essential (primary) hypertension
CPT/HCPCS: 20985; 27447; 36415; 51702; 73562; 80048; 80053; 85025; 97110; 97116; 97161; 97165; C1776; C9290; G0378; J0131; J0690; J2250; J2405; J2704; J2765; J2795; J3010; J3370; J3490; J7030; J8597

== ENCOUNTER → 2024-03-25 14:42 | Outpatient (BNVA) | payer MEDICARE, OTHER, SELFPAY | PROVIDERS: PCP Family Medicine; Visit Provider Nurse Practitioner | DX: Z96.651 Presence of right artificial knee joint (principal); M17.11 Unilateral primary osteoarthritis, right knee | CPT/HCPCS: 73560; 73565; 99024 ==

== ENCOUNTER 2024-03-31 11:08 | Outpatient (RCR) | payer MEDICARE, OTHER, SELFPAY | END 2024-04-22 23:59 | disposition home or self-care (01) | LOC: SPT 11:08 | PROVIDERS: PCP Family Medicine; Visit Provider Nurse Practitioner | DX: Z47.1 Aftercare following joint replacement surgery (principal) | CPT/HCPCS: 97110; 97161 ==

== ENCOUNTER 2024-04-23 06:00 | Outpatient (RCR) | payer MEDICARE, OTHER, SELFPAY | END 2024-05-23 23:59 | disposition home or self-care (01) | LOC: SPT 06:00 | PROVIDERS: PCP Family Medicine; Visit Provider Nurse Practitioner | DX: Z47.1 Aftercare following joint replacement surgery (principal); Z96.651 Presence of right artificial knee joint | CPT/HCPCS: 97110 ==

== ENCOUNTER → 2024-05-04 09:13 | Outpatient (BNVA) | payer MEDICARE, OTHER, SELFPAY | PROVIDERS: PCP Family Medicine; Visit Provider Nurse Practitioner | DX: Z96.651 Presence of right artificial knee joint (principal) | CPT/HCPCS: 73560; 73565; 99024 ==

== ENCOUNTER 2024-05-24 06:00 | Outpatient (RCR) | payer MEDICARE, OTHER, SELFPAY | END 2024-06-22 23:59 | disposition home or self-care (01) | LOC: SPT 06:00 | PROVIDERS: PCP Family Medicine; Visit Provider Nurse Practitioner | DX: Z47.1 Aftercare following joint replacement surgery (principal); Z96.651 Presence of right artificial knee joint | CPT/HCPCS: 97110 ==

== ENCOUNTER → 2024-06-10 09:43 | Outpatient (BNVA) | payer MEDICARE, OTHER, SELFPAY | PROVIDERS: PCP Family Medicine; Visit Provider Nurse Practitioner | DX: Z96.651 Presence of right artificial knee joint (principal) | CPT/HCPCS: 73560; 73565; 99213 ==

== ENCOUNTER → 2024-07-04 10:26 | Outpatient (BNVA) | payer MEDICARE, OTHER, SELFPAY | PROVIDERS: PCP Family Medicine; Visit Provider Emergency Medicine | DX: R11.0 Nausea (principal) | CPT/HCPCS: 87071; 87400; 87426; 87880 ==

== ENCOUNTER → 2025-03-08 15:07 | Outpatient (BNVA) | payer MEDICARE, OTHER, SELFPAY | PROVIDERS: PCP Family Medicine; Visit Provider Nurse Practitioner | DX: Z96.651 Presence of right artificial knee joint (principal) | CPT/HCPCS: 73560; 73565; 99214 ==

== ENCOUNTER → 2025-05-06 09:09 | Outpatient (BNVA) | payer MEDICARE, OTHER, SELFPAY | PROVIDERS: PCP Family Medicine | DX: R39.9 Unspecified symptoms and signs involving the genitourinary system (principal); Z12.5 Encounter for screening for malignant neoplasm of prostate | CPT/HCPCS: 81000; 87086; G0103 ==

== ENCOUNTER → 2025-05-26 08:43 | Outpatient (BNVA) | payer MEDICARE, OTHER, SELFPAY | PROVIDERS: PCP Family Medicine; Visit Provider Family Medicine | DX: Z13.6 Encounter for screening for cardiovascular disorders (principal); R53.83 Other fatigue; R35.1 Nocturia; R97.20 Elevated prostate specific antigen [PSA] | CPT/HCPCS: 80053; 80061; 84153; 84402; 84403; 84443; 85025 ==

== ENCOUNTER → 2025-08-05 09:43 | Outpatient (BNVA) | payer MEDICARE, OTHER, SELFPAY | PROVIDERS: PCP Family Medicine; Visit Provider Family Medicine | DX: R97.20 Elevated prostate specific antigen [PSA] (principal) | CPT/HCPCS: 84153 ==